=== PATIENT | male | born 1995 | race Caucasian/White ===

== ENCOUNTER 2017-01-14 20:21 | Emergency (ER) | payer OTHER ==
[~2017-01-14] VITALS: Ht 177.8 cm; Wt 119.3 kg
[2017-01-14 20:30] VITALS: BP 138/74
[2017-01-14] MEDS ORDERED: ADVIL LIQUI-GE200 M1 PO (20:47)
--- NOTE | 2017-01-14 20:55 | ED SKIN/ALLERGY COMPLAINT ---
History of Present Illness General Chief Complaint: Skin Rash/ Abcess Stated Complaint: PT HAS A ABSCESS ON HIS STOMACH Source: patient, family Exam Limitations: no limitations Vital Signs & Intake/Output Vital Signs & Intake/Output Vital Signs Date Time Temp Pulse Resp B/P B/P Pulse O2 O2 Flow FiO2 Mean Ox Delivery Rate 01/14 2030 99.5 80 18 138/74 98 Room Air Allergies Coded Allergies: Penicillins (FAMILIAL ALLERGY BEEN OK WITH AMOXICILLIN 01/14/17) Sulfa (Sulfonamide Antibiotics) (DYSPNEA 01/14/17) guaifenesin (DYSPNEA 01/14/17) venom-honey bee (ANAPHYLAXIS 01/14/17) Reconcile Medications Cephalexin (Keflex) 500 MG CAPSULE 1 CAP PO TID ABSCESS Doxycycline Hyclate 100 MG CAPSULE 1 CAP PO BID ABSCESS Ibuprofen (Advil Liqui-Gels) 200 MG CAPSULE 3 CAP PO DAILY HEADACHES ( Reported) Triage Note: PT TO TRIAGE WITH C/O ABSCESS TO LOWER ABDOMEN x1WEEK, POPPED OPEN TODAY. HX OF SAME. NO OTHER COMPLAINTS. VSS. Triage Nurses Notes Reviewed? yes Onset: Gradual Duration: week(s): (1) Timing: remote history Severity: moderate Severity Numbers: 7 Location: torso Possible Factors: no cause identified HPI: Patient is a 21-year-old male presenting to the emergency department complaining of abscess to the lower abdomen nothing on the past one week. Symptoms worsening over the past one day. Per patient he had his mom pop the abscess with a sterilized needle. He reports a lot of purulent discharge coming from abscess. Pain is moderate. Worse with palpation. History of similar symptoms in the past. Denies any fevers or chills nausea vomiting chest pain or shortness of breath. She denies taking anything prior to arrival help with pain. No numbness or tingling. (PILI LAGUNAS) Past History Travel History Traveled to [place] past 21 day No Medical History Any Pertinent Medical History? see below for history Surgical History Surgical History: non-contributory Psychosocial History What is your primary language Georgian Tobacco Use: Current Daily Use Daily Tobacco Use Amount/Type: => 5 Cigarettes daily Family History Hx Contributory? No (PILI LAGUNAS) Review of Systems Review of Systems Constitutional: Reports: no symptoms. Comments Review of systems: See HPI, All other systems negative. Constitutional, no chills fever or weight loss HEENT: No visual changes no sore throat no congestion Cardiovascular: No chest pain ,palpitation Skin, no jaundice Respiratory: No dyspnea cough sputum or hemoptysis GI: No nausea no vomiting Muscle skeletal: no back pain, no neck pain, Neurologic: No numbness NO VENEGAS Psych: No stress anxiety Immunology: No splenectomy or history of AIDS (PILI LAGUNAS) Physical Exam Physical Exam General Appearance: well developed/nourished, no apparent distress, alert, awake , comfortable Comments: OVERWEIGHT person in no acute distress HEENT:. Nose is atraumatic. Neck: Normal inspection Back: Nontender Cardiovascular: Regular rate and rhythms no murmurs rubs or gallops, normal JVP Respiratory: No respiratory distress. Abdomen: Soft, nontender nondistended, no appreciable organomegaly. Normal bowel sounds. No ascites Extremity: No edema Neuro: Alert oriented x3 Skin: Erythematous lesion, raised approximately 2 cm in diameter noted on the right lower abdomen at the beltline. Tender to palpation. Small amount. Discharge noted from the lesion. Minimal surrounding erythema. Psych: Mood and affect is normal, memory and judgment is normal. (PILI LAGUNAS) Progress Differential Diagnosis: ABSCESS, FOLLICULITIS, CELLULITIS, NONSPECIFIC RASH, CONTACT DERMATITIS Plan of Care: Orders Procedure Date/time Status TRUNK AREA CULTURE 01/14 2055 Active FingerStick- Glucose 01/14 2054 Active Microbiology 01/14 2106 TRUNK: Culture & Sensitivity - RECD 01/14 2106 TRUNK: Gram Stain - RECD Comments: Patient given first dose of antibacterial emergency department as their pharmacy is closed at this time. We will call with updates for culture results, potentially can ELIMINATE one antibiotic. (PILI LAGUNAS) Departure Departure Time of Disposition: 2054 Disposition: HOME OR SELF CARE Condition: Stable Clinical Impression Primary Impression: Abscess Referrals: LORENZO CAZARES,LALA Ricks (PCP/Family) Additional Instructions: Apply warm compresses to affected area several times a day. Take antibiotics as prescribed. Return for worsening symptoms or concerns. Departure Forms: Customer Survey General Discharge Information Prescriptions: Current Visit Scripts Cephalexin (Keflex) 1 CAP PO TID #30 CAP Doxycycline Hyclate 1 CAP PO BID #20 CAP (PILI LAGUNAS) PA/DOCTOR OF PODIATRIC MEDICINE Co-Sign Statement Statement: ED Attending supervision documentation- I saw and evaluated the patient. I have also reviewed all the pertinent lab results and diagnostic results. I agree with the findings and the plan of care as documented in the PA's/DOCTOR OF PODIATRIC MEDICINE's documentation. x I have reviewed the ED Record and agree with the PA's/DOCTOR OF PODIATRIC MEDICINE's documentation. [] Additions or exceptions (if any) to the PAs/DOCTOR OF PODIATRIC MEDICINE's note and plan are summarized below: [] (WARD CAZARES,DEX) Procedures Additional Procedures Additional Procedures: WOUND CARE Progress: Wound was irrigated with saline and Betadine. Bacitracin placed with nonstick dressing over the abscess. Culture sent. (PILI LAGUNAS)
[2017-01-14] MEDS ORDERED: KEFLEX500 M1 PO (21:15)
[2017-01-14] MEDS ORDERED: DOXYCYCLINE HY100 M2 PO (21:15)
== END 2017-01-14 21:28 ==
LOC: ERH 20:21
DX: L02.211 Cutaneous abscess of abdominal wall (principal)
CPT/HCPCS: 87184; 87070; 87147